=== PATIENT | male | born 1995 | race Caucasian/White ===

== ENCOUNTER 2017-07-25 12:18 | Emergency (ER) | payer BC ==
[~2017-07-25] VITALS: Ht 182.9 cm; Wt 80.0 kg
[~2017-07-25 12:18] MED LIST: CEPH500C3 PO; IBUP600T26 PO; ZITH250T PO
[2017-07-25 12:25] VITALS: BP 108/59; PULSE 56; RESP 18; TEMP 97.5; O2SAT 98
[2017-07-25] MEDS ORDERED: TETANUS/DIPHTHERIA TOXOID ADULT 0.5 ML VIAL IM ONE (14:45)
[2017-07-25] MEDS ORDERED: LIDOCAINE 1%/EPINEPHrine 1:100,000 SOLN 20 ML VIAL INFIL ONE (14:45)
[2017-07-25] MEDS ORDERED: LIDOCAINE 1%/EPINEPHrine 1:100,000 SOLN 30 ML VIAL ONE (14:46)
[2017-07-25] MEDS ORDERED: CEPHALEXIN MONOHYDRATE 500 MG CAP PO ONE (15:15)
--- NOTE | 2017-07-25 15:15 | PD ---
HPI Chief Complaint: Laceration/Skin Injury Time Seen by Provider: 14:28 Travel History International Travel<30 days: No Contact w/Intl Traveler<30days: No Traveled to known affect area: No History of Present Illness HPI 21-year-old male presents emergency department with acute laceration to the left medial foot. Patient states he was throwing away some kitchen appliances, and used his foot to push down the bag, and a knife from a [employer] slurry blender cut his medial foot. Patient's last tetanus was when he was 14. Patient denies numbness, tingling, or weakness in the distal foot. Bleeding was controlled prior to arrival. He denies any significant pain. He has no known drug allergies. [facility] Past Medical History Medical History: Denies Significant Hx ?: Not Past Surgical History Surgical History: No Previous Surgery Social History Alcohol Use: No Tobacco Use: No Substance Use: No Allergies-Medications (Allergen,Severity, Reaction): Coded Allergies: No Known Allergies (Unverified Adverse Reaction, Unknown, 07/25/17) Reported Meds & Prescriptions Reported Meds & Active Scripts Active Keflex (Cephalexin) 500 Mg Capsule 500 Mg PO Q8H Ibuprofen 600 Mg Tab 600 Mg PO Q8HR PRN Zithromax Z-Geoffrey (Azithromycin) 250 Mg Tab 250 Mg PO DIRECTED 500 MG (2 TABLETS) PO ON DAY 1, THEN 250 MG (1 TABLET) PO ON DAYS 2 TO 5. Keflex (Cephalexin Monohydrate) 500 Mg Cap 500 Mg PO Q8 Review of Systems Except as stated in HPI: all other systems reviewed are Neg General / Constitutional: No: Fever Eyes: No: Visual changes HENT: No: Headaches Cardiovascular: No: Chest Pain or Discomfort Respiratory: No: Shortness of Breath Gastrointestinal: No: Abdominal Pain Genitourinary: No: Dysuria Musculoskeletal: No: Pain Skin: Positive Lesions (See history of present illness per), No Rash Neurologic: No: Weakness Psychiatric: No: Depression Endocrine: No: Polydipsia Hematologic/Lymphatic: No: Easy Bruising Physical Exam Narrative GENERAL: Patient appears mildly anxious otherwise in no acute distress. SKIN: Warm and dry. Patient has a 3 cm curvilinear laceration to the left medial foot just below the left medial malleolus. It is full-thickness skin but does not appear to involve the deep layers. No obvious sign of tendon or nerve laceration is noted. Bleeding is controlled. HEAD: Atraumatic. Normocephalic. EYES: Pupils equal and round. No scleral icterus. No injection or drainage. ENT: No nasal bleeding or discharge. Mucous membranes pink and moist. Pharynx is clear. Airways patent. NECK: Trachea midline. Supple CARDIOVASCULAR: Regular rate and rhythm. RESPIRATORY: No accessory muscle use. Clear to auscultation. Breath sounds equal bilaterally. MUSCULOSKELETAL: Extremities without clubbing, cyanosis, or edema. No obvious deformities. Neurovascular exam of the left foot is normal. Range of motion is full without loss of function noted. NEUROLOGICAL: Awake and alert. No obvious cranial nerve deficits. Motor grossly within normal limits. Five out of 5 muscle strength in the arms and legs. Normal speech. PSYCHIATRIC: Appropriate mood and affect; insight and judgment normal. Data Data Last Documented VS Vital Signs Date Time Temp Pulse Resp B/P (MAP) Pulse Ox O2 Delivery O2 Flow Rate FiO2 07/25/17 12:25 97.5 56 18 108/59 (75) 98 Orders Orders Tetanus/Diphtheria Tox Adult (Tetanus/Di (07/25/17 14:45) Lidocai-Epi 1%-1:100,000 Inj (Xylocaine- (07/25/17 14:45) Lidocai-Epi 1%-1:100,000 Inj (Xylocaine- (07/25/17 14:46) Cephalexin (Keflex) (07/25/17 15:15) MDM Medical Decision Making Medical Screen Exam Complete: Yes Emergency Medical Condition: Yes Differential Diagnosis Laceration. Need for tetanus. Need for wound closure. Narrative Course Patient is given a tetanus 0.5 mg IM. Laceration is repaired, please see laceration note. Dressing applied should remain in place for 24 hours. Sutures remain in for 10 days. Patient is given Keflex 500 mg 3 times daily for 7 days. Wound care is discussed with the patient. Patient is not to run, jump, or walk excessively for the next 2 weeks. Note is given as the patient was going to go to [employer] next week. Procedures Procedure Narrative LACERATION LOCATION: Left medial ankle LENGTH: 3 cm NUMBER OF STITCHES/SHAWN: 4 interrupted vertical mattress, 4 simple interrupted REPAIR: The area of the laceration was prepped with Betadine and sterilely draped. The laceration was infiltrated with 3 mL's 1% lidocaine with epi. The wound was copiously irrigated and explored without evidence of foreign body, tendon injury or neurovascular injury. The wound was closed using 4-0 Prolene. This was a single layer repair. A sterile dressing was applied. The patient was advised to keep the dressing clean and dry. Patient tolerated the procedure well. Diagnosis Primary Impression: Laceration of left ankle without complication Qualified Codes: S91.012A - Laceration without foreign body, left ankle, initial encounter Patient Instructions: Care For Your Stitches (ED), Diphtheria Tetanus and Pertussis Vaccine (ED), General Instructions Departure Forms: Work Release Enter return to work date: Aug 08, 2017 Special Instructions: Patient is not to jump, run, or excessively walk for 2 weeks, until wound is completely healed. Additional Instructions: Patient is given a tetanus 0.5 mg IM. Laceration is repaired. Dressing applied should remain in place for 24 hours. Sutures remain in for 10 days. Patient is given Keflex 500 mg 3 times daily for 7 days. Wound care is discussed with the patient. Patient is not to run, jump, or walk excessively for the next 2 weeks. Note is given as the patient was going to go to [employer] next week. Med/Other Pt SpecificInfo: Prescription(s) given, Wound Care Scripts Cephalexin (Keflex) 500 Mg Capsule 500 MG PO Q8H for Infection, #21 CAP 0 Refills Prov: Carole Goldberg MD 07/25/17 Disposition: 01 DISCHARGE HOME Condition: Stable Santana Sheehan Jul 25, 2017 15:15
[2017-07-25] MEDS ORDERED: CEPH-460 PO (15:16)
== END 2017-07-25 15:40 | disposition home or self-care (01) ==
LOC: NEPD 12:18
DX: S91.012A Laceration without foreign body, left ankle, initial encounter (principal); W29.0XXA Contact with powered kitchen appliance, initial encounter; Z23 Encounter for immunization
CPT/HCPCS: 12002; 90471; 90714